=== PATIENT | female | born 1995 | race Caucasian/White ===

== ENCOUNTER 2022-01-07 07:34 | Outpatient (CLI) | payer BC, SELFPAY ==
--- NOTE | ~2022-01-07 | MR_ITS ---
EXAMINATION: MR pelvis wo/w con DATE: 01/07/2022 08:49 INDICATION: Pelvic and perineal pain. TECHNIQUE: Magnetic resonance imaging (MRI) of the pelvis was performed without and with 9 mL MultiHa nce intravenous contrast. COMPARISON: None. FINDINGS: There is a 3.0 cm mass in left ovary containing fat, consistent with a dermoid. Right ovary is normal . The uterus is normal. There are no pathologically enlarged lymph nodes. There is physiologic fluid in the pelvis. There is a ring shaped device in the vagina. IMPRESSION: 1. 3.0 cm mass containing fat in left ovary, consistent with a dermoid. Reviewed, dictated and finalized at location A. [employer]
== END 2022-01-07 07:35 | disposition home or self-care (01) ==
DX: R10.2 Pelvic and perineal pain (principal); N83.8 Other noninflammatory disorders of ovary, fallopian tube and broad ligament
CPT/HCPCS: 72197; A9577